=== PATIENT | female | born 1985 | race Caucasian/White ===

== ENCOUNTER 2017-02-20 11:13 | Day surgery (SDC) | payer BC ==
[~2017-02-20 11:13] MED LIST: MOTRIN800 MG PO; NORCO 5/325 TAB1 TAB PO; VIVA CT PRENAT1 EACH PO
[2017-02-20 12:09] LABS: HCT-HEMATOCRIT 47.2 % (34.0-49.0); HGB-HEMOGLOBIN 15.7 gm/dl (12.0-15.5); MCV (MEAN CELL VOLUME) 89.6 fl (82.0-96.0); RED CELL DISTRIBUTION WIDTH 13.5 % (12.4-16.4)
== END 2017-02-20 17:20 ==
LOC: WSU 11:13 → SHSB 11:17 → ORW 12:32 → PACU 13:31 → SHSB 15:15
PROVIDERS: Obstetrics & Gynecology
PROC: 0UT64ZZ Resection of Left Fallopian Tube, Percutaneous Endoscopic Approach (ICD-10-PCS; principal; 2017-02-20)
PROC: 8E0W4CZ Robotic Assisted Procedure of Trunk Region, Percutaneous Endoscopic Approach (ICD-10-PCS; 2017-02-20)
DX: N73.6 Female pelvic peritoneal adhesions (postinfective) (principal); G89.29 Other chronic pain; Z90.710 Acquired absence of both cervix and uterus; Z85.41 Personal history of malignant neoplasm of cervix uteri; E66.9 Obesity, unspecified; F17.210 Nicotine dependence, cigarettes, uncomplicated; Z98.890 Other specified postprocedural states
CPT/HCPCS: J1170; J3010; J7030